=== PATIENT | male | born 1980 | race Caucasian/White ===

== ENCOUNTER 2024-05-26 19:45 | Emergency (ER) | payer BC ==
[2024-05-26 21:05] LABS: BASOPHILS ABSOLUTE AUTO 0.02 K/uL (0.02-0.10); BASOPHILS PERCENT AUTO 0.3 % (0.0-0.5); EOSINOPHILS ABSOLUTE AUTO 0.01 K/uL (0.04-0.40); EOSINOPHILS PERCENT AUTO 0.2 % (1.0-5.0); HEMATOCRIT 40.4 % (40.0-54.0); HEMOGLOBIN 13.8 g/dL (13.0-18.0); LYMPHOCYTES ABSOLUTE AUTO 0.99 K/uL (1.50-4.00); LYMPHOCYTES PERCENT AUTO 15.7 % (20.0-40.0); MEAN CORPUSCULAR HEMOGLOBIN 28.3 pg (27.0-32.0); MEAN CORPUSCULAR HGB CONC 34.2 g/dL (31.0-35.0); MEAN CORPUSCULAR VOLUME 83 fL (76-96); MONOCYTES ABSOLUTE AUTO 0.59 K/uL (0.20-0.80); MONOCYTES PERCENT AUTO 9.4 % (3.0-10.0); NEUTROPHILS ABSOLUTE AUTO 4.68 K/uL (2.00-7.50); NEUTROPHILS PERCENT AUTO 74.4 % (45.0-70.0); PLATELET COUNT,PLT 148 K/uL (150-400); RED BLOOD CELL COUNT 4.88 M/uL (4.50-6.50); RED CELL DISTRIBUTION WIDTH 12.7 % (11.0-16.0); WHITE BLOOD CELL COUNT,WBC 6.3 K/uL (4.0-11.0)
[2024-05-26 21:15] LABS: APPEARANCE,URINE CLEAR (CLEAR); COLOR,URINE YELLOW; GLUCOSE,URINE NEGATIVE (NEGATIVE); KETONES,URINE 40 mg/dL (NEGATIVE); PH,URINE 5.5 (5.0-8.0); PROTEIN,URINE NEGATIVE (NEGATIVE)
[2024-05-26 21:16] LABS: AMORPHOUS SEDIMENT,URINE FEW /HPF; BILIRUBIN,URINE NEGATIVE (NEGATIVE); LEUKOCYTE ESTERASE,URINE NEGATIVE (NEGATIVE); NITRITE,URINE NEGATIVE (NEGATIVE); OCCULT BLOOD,URINE NEGATIVE (NEGATIVE); RBC,URINE NOT SEEN /HPF; UROBILINOGEN,URINE 0.2 E.U./dL (0.2-1.0); WBC,URINE NOT SEEN /HPF
[2024-05-26 21:24] LABS: ALBUMIN 3.7 g/dL (3.4-5.0); BILIRUBIN TOTAL 0.9 mg/dL (0.0-1.0); BUN/CREATININE RATIO 11.8 (6-25); CALCIUM 8.6 mg/dL (8.5-10.1); CARBON DIOXIDE,CO2 23.6 mmol/L (21.0-32.0); CREATININE 0.85 mg/dL (0.70-1.30); EST CRCL DRUG DOSING (CG) 116.9 mL/min; POTASSIUM,K 3.6 mmol/L (3.5-5.1); PROTEIN TOTAL,TP 7.3 g/dL (6.4-8.2)
[2024-05-26 21:32] LABS: INFLUENZA A NAA NEGATIVE (NEGATIVE); INFLUENZA B NAA NEGATIVE (NEGATIVE); RESPIRATORY SYNCYTIAL VIR NAA NEGATIVE (NEGATIVE)
[2024-05-26 21:37] LABS: CORONAVIRUS COVID-19 NAA NEGATIVE (NEGATIVE)
== END 2024-05-26 22:00 | disposition home or self-care (01) ==
LOC: LB.ED 19:45
DX: R50.9 Fever, unspecified (principal); Z88.1 Allergy status to other antibiotic agents; Z79.899 Other long term (current) drug therapy
CPT/HCPCS: 0241U; 36415; 80053; 81001; 83605; 84145; 85025; 86140; 86308; 87651-QW; 99283

== ENCOUNTER 2024-09-11 18:06 | Emergency (ER) | payer BC ==
[2024-09-11] MEDS: Metoprolol Tartrate 5 MG/5 ML SDV IVPUSH ONE (18:15)
[2024-09-11] MEDS: LORazepam 2 MG/ML SDV IVPUSH ONE (18:19)
[2024-09-11] MEDS ORDERED: Sodium Chloride 0.9% 10 ML Syringe FLUSH PRN ×2 (18:26→18:34)
[2024-09-11 18:47] LABS: MEAN CORPUSCULAR HEMOGLOBIN 28.1 pg (27.0-32.0); MEAN CORPUSCULAR HGB CONC 34.1 g/dL (31.0-35.0); MEAN PLATELET VOLUME 8.9 fL (6.0-10.0); RED BLOOD CELL COUNT 4.98 M/uL (4.50-6.50); RED CELL DISTRIBUTION WIDTH 13.3 % (11.0-16.0); WHITE BLOOD CELL COUNT,WBC 8.7 K/uL (4.0-11.0)
[2024-09-11] MEDS: LORazepam 2 MG/ML SDV IVPUSH SCH (18:47)
[2024-09-11 19:06] LABS: CALCIUM 8.6 mg/dL (8.5-10.1); CARBON DIOXIDE,CO2 25.4 mmol/L (21.0-32.0); CREATININE 1.19 mg/dL (0.70-1.30); EST CRCL DRUG DOSING (CG) 83.5 mL/min; MAGNESIUM 1.7 mg/dL (1.8-2.4); PHOSPHORUS 2.7 mg/dL (2.5-4.9); TROPONIN I HIGH SENSITIVITY 6.8 pg/ml (<=60.4)
[2024-09-11 19:09] LABS: ANION GAP 15.6 mmol/L (5.0-15.0)
[2024-09-11] MEDS ORDERED: Magnesium Chloride 64 MG Tab.ER PO SCH (19:30)
[2024-09-11] MEDS: Sodium Chloride 0.9% 1,000 ML IV SCH (19:33)
[2024-09-11] MEDS: Potassium Chloride Riders 10 MEQ in Premix Bag 1 BAG IV ONE (19:35)
[2024-09-11] MEDS: Potassium Chloride Riders 50 ML ONE (19:35)
[2024-09-11] MEDS: Magnesium Oxide 400 MG Tab PO ONE (19:44)
[2024-09-11] MEDS: Levalbuterol HCl 1.25 MG/0.5 ML Neb NEB ONE (20:15)
== END 2024-09-11 21:15 | disposition home or self-care (01) ==
LOC: LB.ED 18:06
DX: E87.6 Hypokalemia (principal); E83.42 Hypomagnesemia; Z88.1 Allergy status to other antibiotic agents; Z86.16 Personal history of COVID-19
CPT/HCPCS: 36415; 80048; 83735; 84100; 84443; 84484; 85027; 85379; 93005; 93010; 93246; 94640; 96365; 96375; 99284; 99285-25; A9270-GY; J2060; J3480; J3490; J7030; J7612

== ENCOUNTER 2024-10-16 17:00 | Emergency (ER) | payer BC ==
[2024-10-16] MEDS: LORazepam 0.5 MG Tab PO ONE (18:34)
[2024-10-16] MEDS: Ibuprofen 600 MG Tab PO ONE (19:33)
== END 2024-10-16 20:11 | disposition home or self-care (01) ==
LOC: SUPCPDRO 17:00 → LB.ED 17:00
DX: I47.10 Supraventricular tachycardia, unspecified (principal); R20.2 Paresthesia of skin; Z88.1 Allergy status to other antibiotic agents; Z79.899 Other long term (current) drug therapy
CPT/HCPCS: 93005; 93010; 99284; A9270-GY

== ENCOUNTER 2024-11-13 11:57 | Emergency (ER) | payer BC ==
[2024-11-13] MEDS: Ibuprofen 600 MG Tab PO ONE (14:44)
[2024-11-13 14:57] LABS: BLOOD UREA NITROGEN,BUN 17 mg/dL (8-26); CALCIUM 9.3 mg/dL (8.5-10.1); CARBON DIOXIDE,CO2 27.9 mmol/L (21.0-32.0); CHLORIDE,CL 106 mmol/L (98-107); CREATININE 0.81 mg/dL (0.70-1.30); EST CRCL DRUG DOSING (CG) 121.42 mL/min; ESTIMATED GFR 112 mL/min (>60); GLUCOSE RANDOM 103 mg/dL (74-100); POTASSIUM,K 3.9 mmol/L (3.5-5.1); SODIUM,NA 142 mmol/L (136-145)
[2024-11-13 14:58] LABS: BASOPHILS ABSOLUTE AUTO 0.03 K/uL (0.02-0.10); BASOPHILS PERCENT AUTO 0.3 % (0.0-0.5); EOSINOPHILS ABSOLUTE AUTO 0.07 K/uL (0.04-0.40); EOSINOPHILS PERCENT AUTO 0.6 % (1.0-5.0); HEMATOCRIT 45.4 % (40.0-54.0); HEMOGLOBIN 15.6 g/dL (13.0-18.0); LYMPHOCYTES ABSOLUTE AUTO 1.89 K/uL (1.50-4.00); LYMPHOCYTES PERCENT AUTO 17.4 % (20.0-40.0); MEAN CORPUSCULAR HEMOGLOBIN 28.5 pg (27.0-32.0); MEAN CORPUSCULAR HGB CONC 34.4 g/dL (31.0-35.0); MEAN CORPUSCULAR VOLUME 83 fL (76-96); MEAN PLATELET VOLUME 9.4 fL (6.0-10.0); MONOCYTES ABSOLUTE AUTO 0.53 K/uL (0.20-0.80); MONOCYTES PERCENT AUTO 4.9 % (3.0-10.0); NEUTROPHILS ABSOLUTE AUTO 8.35 K/uL (2.00-7.50); NEUTROPHILS PERCENT AUTO 76.8 % (45.0-70.0); PLATELET COUNT,PLT 176 K/uL (150-400); RED BLOOD CELL COUNT 5.47 M/uL (4.50-6.50); RED CELL DISTRIBUTION WIDTH 13.3 % (11.0-16.0); WHITE BLOOD CELL COUNT,WBC 10.9 K/uL (4.0-11.0)
[2024-11-13 15:06] LABS: C-REACTIVE PROTEIN < 5.0 mg/L (<5.0)
[2024-11-15 18:07] LABS: EBV AB TO EARLY (D) AG IGG 15.1 U/mL (0.0-10.9); EBV AB TO VIRAL CAPSID AG IGG 88.8 U/mL (0.0-21.9); EBV AB TO VIRAL CAPSID AG IGM 25.4 U/mL (0.0-43.9); EBV ANTIBODY TO NUCLEAR AG IGG 94.4 U/mL (0.0-21.9)
== END 2024-11-13 15:50 | disposition home or self-care (01) ==
LOC: LB.ED 11:57
DX: R20.2 Paresthesia of skin (principal); Z88.1 Allergy status to other antibiotic agents; Z86.16 Personal history of COVID-19; Z79.899 Other long term (current) drug therapy
CPT/HCPCS: 36415; 80048; 83735; 85025; 86140; 86663; 86664; 86665; 99283; 99284; A9270-GY